=== PATIENT | female | born 1955 | race Caucasian/White ===

== ENCOUNTER 2016-07-15 17:25 | Inpatient (IN) | payer OTHER ==
[2016-07-15] MEDS ORDERED: NITROGLYCERIN SL PRN (17:39)
[2016-07-15] MEDS ORDERED: ASPIRIN PO STA (17:39)
--- NOTE | 2016-07-15 18:32 | Diag Imaging Result Document ---
PROCEDURE NAME: CHEST-2 VIEWS - 07/15/2016 FRONTAL AND LATERAL CHEST, TWO VIEWS: COMPARISON: 07/05/2014. FINDINGS: The lungs are hyperexpanded. There is a dense infiltrate in the midright lung. The heart is not enlarged. Mild vascular distention. No pleural effusions. IMPRESSION: 1. Emphysema. 2. Right pneumonia.
[2016-07-15] MEDS ORDERED: MORPHINE IV ONE (19:23)
[2016-07-15] MEDS ORDERED: LEVAQUIN 750 MG/D5W 150 ML IV ONE (19:24)
[2016-07-15] MEDS ORDERED: ZOFRAN IV ONE (19:24)
--- NOTE | 2016-07-15 19:30 | PROVIDER DOCUMENTATION ---
HPI-Respiratory General - General Chief Complaint: Shortness of Breath Stated Complaint: CHEST PAIN,COPD,CANT BREATHE Time Seen by Provider: 07/15/16 19:15 Source: patient, family Allergies/Adverse Reactions: Patient Allergies Allergy/AdvReac Type Severity Reaction Status Date / Time No Known Allergies Allergy Verified 07/15/16 20:16 Home Medications: Home Medication List Medication Instructions Recorded Confirmed Last Taken Type Albuterol Sulfate [Proair Hfa] 1 puff IH Q4HR 05/04/13 08/02/14 08/01/14 History Mometasone/Formoterol [Dulera 200 1 puff IH BID 05/04/13 08/02/14 08/01/14 History Mcg/5 Mcg Inhaler] Tiotropium [place] Inhaler 1 puff INH RTDAILY 05/04/13 08/02/14 08/01/14 History [Spiriva] Trazodone [Desyrel] 50 mg PO QHS 05/04/13 08/02/14 08/01/14 History - History of Present Illness-Resp Nature of Presenting Problem: 61 year old WF with PMH: COPD, home oxygen, presents with a 2 day history of cough, worsening shortness of breath, worsening difficulty breathing, subjective fever/chills, and nausea. Pt reports associated weakness, fatigue and decreased appetite. Quality of Pain: reports: aching (right back, right mid chest), dull Severity in ED: reports: mild Onset/Duration: reports: 2 days ago Timing: reports: still present, constant, getting worse Context: reports: recent URI Exposure: reports: unknown cause Cough Quality/Degree: reports: moderate, productive cough, sputum Episode Frequency: occasional episodes Current Respiratory Medication Therapy: Initiated steroid inhaler, Initiated albuterol, Initiated singulair Modifying Factors: improves with: oxygen, rest Associated Symptoms: reports: chest pain/soreness, cough, fever/chills, hurts to breathe, shortness of breath, short of breath Similar Symptoms Previously?: Yes Recently seen or treated by another doctor?: No Review of Systems - Adult - REVIEW OF SYSTEMS - ADULT Constitutional: reports: see HPI, chills, fever, fatique Eyes: reports: no symptoms reported. denies: discharge, blurred vision, double vision, redness Ears, Nose, Mouth & Throat: reports: no symptoms reported. denies: ear discharge, ear pain, nose pain, loose teeth, throat pain, throat swelling Cardiovascular: reports: see HPI, chest pain. denies: edema, heart murmur, irregular heart rate, orthopnea, palpitations, poor circulation, syncope Respiratory: reports: see HPI, chronic cough, cough, dyspnea on exertion, shortness of breath, wheezing. denies: excessive sputum production, hemoptysis , pleurisy Gastrointestinal: reports: see HPI, nausea. denies: abdominal pain, diarrhea, vomiting Genitourinary: reports: no symptoms reported. denies: dysuria, hematuria, urgency Musculoskeletal: reports: no symptoms reported. denies: bone pain, joint pain, joint swelling, muscle weakness, neck pain Integumentary: reports: no symptoms reported. denies: hives, itching, rash, skin sores/ulcer Neurological: reports: no symptoms reported. denies: ataxia, numbness, paresthesia, tremors Psychiatric: reports: no symptoms reported Endocrine: reports: no symptoms reported Hematologic/Lymphatic: reports: no symptoms reported Allergic/Immunologic: reports: no symptoms reported All Other Systems: Reviewed and Negative Past History - Adult - PAST MEDICAL HISTORY-ADULT Review of Records: reports: Old Records Reviewed, Nursing Assessment Review, Medications Reviewed, Social history reviewed & non-contributory. Major Childhood Illnesses: reports: denies history Cardiovascular: reports: denies history Respiratory: reports: COPD, pneumonia, sleep apnea, other (pneumothorax) Gastrointestinal: reports: denies history Obstetrical/Gynecological: reports: denies history Genitourinary: reports: denies history Musculoskeletal: reports: denies history Neurological: reports: denies history Endocrine/Immune: reports: denies history Other Conditions: reports: denies history - PRIOR SURGERIES/PROCEDURES Surgical/Procedure History: reports: hysterectomy, other (ear) - FAMILY HISTORY Family History: reviewed, not pertinent - SOCIAL HISTORY Smoking: cigarettes Provider spent 3-5 mins advising pt. on dangers of tobacco.: Discussed manners to quit use, and f/u contacts for add'l counseling. Substance Use: none/never Alcohol Use Frequency: never Physical Exam-General - PHYSICAL EXAM-ADULT Initial Vital Signs Reviewed: Yes - CONSTITUTIONAL General Appearance: appears well, alert, mild distress. negative: no apparent distress, moderate distress, severe distress, lethargic, slow to respond, obtunded, combative - EYES Eyes: pink conjunctivae. negative: conjuctival exudate, pale conjunctivae, photophobia, sclera injected, scleral icterus, subconjunctival hemorrhage - HEAD, EARS, NOSE, MOUTH & THROAT HENMT: normocephalic/atraumatic, moist mucous membranes, normal ENT inspection - NECK Neck: non-tender, full range of motion, supple, normal inspection. negative: C- spine tenderness, limited range of motion, tender lateral, tender midline - RESPIRATORY Respiratory: chest non-tender, no pleuratic chest pain, no respiratory distress , no accessory muscle use, respiratory distress (with exertion), decreased breath sounds, rhonchi (right lobe), wheezing. negative: lungs clear, normal breath sounds, accessory muscle use, crackles, rales, stridor - CARDIOVASCULAR Cardiovascular: normal peripheral pulses, regular rate, rhythm, no edema, no gallop, no JVD - CHEST (BREASTS) Chest/Breast: tenderness (with deep inspiration) - GASTROINTESTINAL (ABDOMEN) Abdominal Exam: normal bowel sounds, non tender, soft - GENITOURINARY Female Genitalia/Pelvic Exam: deferred Rectal Exam: deferred Hemoccult Exam: deferred - LYMPHATIC Lymphatic: no adenopathy - MUSCULOSKELETAL Back Exam: normal inspection, no CVA tenderness, no vertebral tenderness. negative: CVA tenderness, decreased range of motion, swelling, vertebral tenderness Extremity: normal range of motion, non-tender, normal gait, normal inspection, no pedal edema, no calf tenderness, normal capillary refill. negative: deformity, erythema, pedal edema, slow capillary refill, swelling, tenderness Peripheral Pulses: radial (R): 3+, radial (L): 3+, dorsalis-pedis (R): 3+, dorsalis-pedis (L): 3+ - SKIN Integumentary: normal color, normal turgor, warm/dry - NEUROLOGIC Neurologic: grossly normal, no motor/sensory deficits - PSYCHIATRIC Psych/Mental Status: normal mood/affect, normal thought content, normal thought process, oriented x 3 Progress - PLAN OF CARE/RESULTS Progress/Plan/Lab Results: Laboratory Tests 07/15/16 07/15/16 07/15/16 19:02 19:02 19:02 WBC 23.05 H RBC 4.00 L Hgb 9.9 L Hct 32.2 L MCV 80.5 L MCH 24.8 L MCHC 30.7 L RDW Std Deviation 15.9 H Plt Count 574 H MPV 9.2 Immature Gran % (Auto) 0.3 Neut % (Auto) 86.2 H Lymph % (Auto) 5.8 L [place] % (Auto) 6.2 Eos % (Auto) 1.3 Baso % (Auto) 0.2 Immature Gran # (Auto) 0.08 H Neut # (Auto) 19.88 H Lymph # (Auto) 1.33 Sau[place] # (Auto) 1.42 H Eos # (Auto) 0.30 Baso # (Auto) 0.04 Monocytes 2 Hypochromia 2+ Vacuolization OCCASIONAL Toxic Granulation OCCASIONAL Large Platelets OCCASIONAL Poikilocytosis OCCASIONAL Anisocytosis 1+ Microcytosis OCCASIONAL Target Cells 1+ Ovalocytes OCCASIONAL Stomatocytes OCCASIONAL Schistocytes OCCASIONAL PT INR PTT (Actin FS) D-Dimer 0.76 H Sodium 136 Potassium 4.2 Chloride 95 L Carbon Dioxide 25 Anion Gap 16 BUN 8 Creatinine 0.7 Estimated GFR/1.73 m2 > 60 BUN/Creatinine Ratio 11 Glucose 119 H Calculated Osmolality 271 Calcium 8.3 L Magnesium 1.9 Total Bilirubin 0.42 AST 12 ALT 12 Alkaline Phosphatase 103 Creatine Kinase 118 Troponin T Kac-E-Tdoknuttndg Pept Total Protein 7.3 Albumin 3.7 Globulin 3.6 Albumin/Globulin Ratio 1.0 Plasma Lactate 07/15/16 07/15/16 07/15/16 19:02 19:02 19:02 WBC RBC Hgb Hct MCV MCH MCHC RDW Std Deviation Plt Count MPV Immature Gran % (Auto) Neut % (Auto) Lymph % (Auto) Sau[place] % (Auto) Eos % (Auto) Baso % (Auto) Immature Gran # (Auto) Neut # (Auto) Lymph # (Auto) [place] # (Auto) Eos # (Auto) Baso # (Auto) Monocytes Hypochromia Vacuolization Toxic Granulation Large Platelets Poikilocytosis Anisocytosis Microcytosis Target Cells Ovalocytes Stomatocytes Schistocytes PT 11.4 INR 1.07 PTT (Actin FS) 35.0 D-Dimer Sodium Potassium Chloride Carbon Dioxide Anion Gap BUN Creatinine Estimated GFR/1.73 m2 BUN/Creatinine Ratio Glucose Calculated Osmolality Calcium Magnesium Total Bilirubin AST ALT Alkaline Phosphatase Creatine Kinase Troponin T < 0.010 Hbz-T-Hhfjttxhxse Pept 134 Total Protein Albumin Globulin Albumin/Globulin Ratio Plasma Lactate 07/15/16 19:02 WBC RBC Hgb Hct MCV MCH MCHC RDW Std Deviation Plt Count MPV Immature Gran % (Auto) Neut % (Auto) Lymph % (Auto) Sau[place] % (Auto) Eos % (Auto) Baso % (Auto) Immature Gran # (Auto) Neut # (Auto) Lymph # (Auto) [place] # (Auto) Eos # (Auto) Baso # (Auto) Monocytes Hypochromia Vacuolization Toxic Granulation Large Platelets Poikilocytosis Anisocytosis Microcytosis Target Cells Ovalocytes Stomatocytes Schistocytes PT INR PTT (Actin FS) D-Dimer Sodium Potassium Chloride Carbon Dioxide Anion Gap BUN Creatinine Estimated GFR/1.73 m2 BUN/Creatinine Ratio Glucose Calculated Osmolality Calcium Magnesium Total Bilirubin AST ALT Alkaline Phosphatase Creatine Kinase Troponin T Pmu-I-Qdvpjgmzsal Pept Total Protein Albumin Globulin Albumin/Globulin Ratio Plasma Lactate 1.2 Orders Category Date Time Status Cardiac Monitoring DIRECTED Care 07/15/16 17:40 Active Saline Loc NOW Care 07/15/16 17:40 Active CHEST-2 VIEWS [RAD] Stat Exams 07/15/16 17:40 Draft CTA [ANGIOGRAM/PULMONARY ARTERIES] [CT] Stat Exams 07/15/16 20:21 Taken BLOOD CULTURE [BLDCUL] Stat Lab 07/15/16 19:02 Results CBC WITH ELECTRONIC DIFF [HEME] Stat Lab 07/15/16 19:02 Results CK PROFILE [SP CHEM] Stat Lab 07/15/16 19:02 Completed COMPREHENSIVE METABOLIC PANEL [CHEM] Stat Lab 07/15/16 19:02 Completed D-DIMER [CHEM] Stat Lab 07/15/16 19:02 Completed LACTATE, PLASMA [CHEM] Stat Lab 07/15/16 19:02 Completed MAGNESIUM [CHEM] Stat Lab 07/15/16 19:02 Completed PRO B-NATRIURETIC PEPTIDE Stat Lab 07/15/16 19:02 Completed PROTIME WITH INR [COAG] Stat Lab 07/15/16 19:02 Completed PTT [COAG] Stat Lab 07/15/16 19:02 Completed SPUTUM CULTURE WITH GRAM STAIN [RM] Stat Lab 07/15/16 19:30 Uncollected TROPONIN T Stat Lab 07/15/16 19:02 Completed 0.9% Sodium Chloride Inj [Ns] 500 ml Med 07/15/16 19:36 Discontinued IV 999 mls/hr Aspirin Med 07/15/16 17:39 Discontinued 325 mg PO STAT STA Levofloxacin 750 mg/D5w [Levaquin 750 mg/D5w] 150 ml Med 07/15/16 19:24 Discontinued IV NOW Morphine Med 07/15/16 19:23 Discontinued 4 mg IV NOW ONE Nitroglycerin Sl [Nitroglycerin] Med 07/15/16 17:39 Active 0.4 mg SL Q5M PRN PRN Ondansetron [Zofran] Med 07/15/16 19:24 Discontinued 4 mg IV NOW ONE EKG [EKG] Stat Ther 07/15/16 17:40 Ordered Vital Signs - 24 hr 07/15/16 07/15/16 07/15/16 17:38 20:15 21:24 Temperature 99.9 F H Pulse Rate 119 H 106 H 91 H Respiratory 22 18 19 Rate Blood Pressure 119/77 143/123 105/63 O2 Sat by Pulse 91 L 94 L 95 Oximetry Reviewed radiology, labs, H&P with Dr. Warner, agrees with plan of care and treatment. - XRAY 1 XRAY Study: Chest Impression: Abnormal (right pneumonia, emphysema per Dr. Shah) - CT/MRI 1 CT Study: Angiogram, Thorax (pulmonary arteries) Impression: Normal, Abnormal (CT confirms right pneumonia, no PE, no effusiona, no cardiomegaly, 14mm right apical nodule vs pleural thickening, thickening of the left as well, emphysema, enlarged nodes. per Dr. Shah) - CONSULTS/PCP/HOSPITALIST Notification #1 *Consult/PCP/Hospitalist*: Dr. Ma Time Discussed: 21:31 Consult Disposition: Will see in ED, Admit Departure - Departure Time of Disposition Order: 21:32 DIAGNOSIS: PNA (pneumonia) Qualifiers: Pneumonia type: due to unspecified organism Laterality: right Lung location: middle lobe of lung Qualified Code(s): J18.1 - Lobar pneumonia, unspecified organism COPD (chronic obstructive pulmonary disease) Qualifiers: COPD type: unspecified COPD Qualified Code(s): J44.9 - Chronic obstructive pulmonary disease, unspecified Disposition: ADMITTED INPATIENT 09 Certified Medical Emergency: Emergent Condition: Stable Referrals: [Primary Care Provider] - Attestation - Physician/ JAVI Attestation Patient care was provided by Advanced Practice Provider:: Yes Advanced Practice Provider:: [place] Advanced Practice Provider documentation review:: The Mid-level provider documentation, treatment plan and medical decision making was reviewed by the physician who agrees with all treatment and medical decision making by the MLP.
[2016-07-15 19:31] LABS: BASO% 0.2 % (0.0-0.8); EOS% 1.3 % (0.0-10.0); HEMATOCRIT 32.2 % (37.0-47.0); HEMOGLOBIN 9.9 g/dL (12.0-16.0); IMM GRAN# 0.08 X1000 (0.0-0.04); IMM GRAN% 0.3 % (0.0-0.5); LYMPH# 1.33 X1000 (1.2-3.4); LYMPH% 5.8 % (20.5-51.1); MANUAL DIFF NEEDED? YES; MCH 24.8 PG (27-31); MCHC 30.7 g/dL (33-37); MCV 80.5 FL (81-99); MONO# 1.42 X1000 (0.11-0.59); MONO% 6.2 % (1.7-9.3); MPV 9.2 FL (7.4-10.4); NEUT% 86.2 % (42.2-75.2); PLT 574 X1000 (130-400)
[2016-07-15] MEDS ORDERED: NS 500 ML IV ONE (19:36)
[2016-07-15 19:42] LABS: AGAP 16; ALBUMIN 3.7 g/dL (3.5-5.0); ALKALINE PHOSPHATASE 103 U/L (32-104); BUN 8 mg/dL (8-22); CALCIUM 8.3 mg/dL (8.8-10.2); CHLORIDE 95 mmol/L (98-107); CK PROFILE 118 U/L (24-173); COSMO 271; GOT 12 U/L (10-30); GPT 12 U/L (10-36); MAGNESIUM 1.9 mg/dL (1.5-2.7); POTASSIUM 4.2 mmol/L (3.5-5.1); SODIUM 136 mmol/L (136-145); TCO2 25 mmol/L (25-35); TOTAL BILIRUBIN 0.42 mg/dL (0.20-1.00); TOTAL PROTEIN 7.3 g/dL (6.3-8.3)
[2016-07-15 19:47] LABS: INR 1.07; PROTIME 11.4 Seconds (9.2-11.7)
[2016-07-15 21:16] LABS: MONO 2 % (1-9)
[2016-07-15 21:19] LABS: HYPOCHROM 2+
[2016-07-15 21:20] LABS: TARGET CELLS 1+
[2016-07-15 21:21] LABS: LARGE PLATELETS OCCASIONAL; STOMATOCYTES OCCASIONAL
[2016-07-15 21:30] LABS: BANDS 2 % (0-1); LYMPHS 6 % (21-51)
[2016-07-15] MEDS ORDERED: MORPHINE IV PRN (22:27)
[2016-07-15] MEDS ORDERED: LASIX IV ONE ×2 (22:32)
--- NOTE | 2016-07-15 23:06 | HISTORY AND PHYSICAL ---
REASON FOR ADMISSION: 2-day history of shortness of breath, cough, fever, chills. HISTORY OF PRESENT ILLNESS: Ms. Karen Ibrahim is a 64-year-old lady with past medical history of COPD, sleep apnea and hyperlipidemia. She comes in complaining of 2-day history of right pleuritic chest pain, cough productive of greenish sputum and low-grade fever. She has also stated over the last 24 hours, she has been having worsening shortness of breath with orthopnea. Denies any anginal type symptoms. However, no palpitations or lightheadedness. No PND, no leg swelling. No extremity redness or pain. No GI or complaints. The patient is a poor historian because she just received IV morphine and is not very coherent of her history, but will follow commands. Her is at bedside and he is filling in for most of the gaps patient is unable to answer. REVIEW OF SYSTEMS: Twelve system review is negative. Positive per HPI. ALLERGIES: None. MEDICATIONS: Patient says she has not been getting her medications but she used to be on Spiriva, Symbicort, trazodone and albuterol. FAMILY HISTORY: Positive for breast cancer, diabetes in first-degree relatives. SOCIAL HISTORY: Smokes 2 packs a day. Has no immediate plans to quit. The patient has about 3 beers a day. No illicit drug use. She is , lives with her . SURGICAL HISTORY: Appendectomy, chest tube placement, , right ear surgery. PERTINENT DATA: CTA of the chest was done for elevated D-dimer and shortness of breath and it showed right lower lobe pneumonia. Her white count 20,000, hemoglobin and hematocrit 9 and 32. MCV is 80, platelets 574,000 with a left shift. Glucose 119. Troponins negative. ProBNP 134, D- dimer 0.76. PTT is normal. Blood cultures are pending. Chest x-ray confirms the same right lower lobe pneumonia. PHYSICAL EXAMINATION: VITAL SIGNS: Blood pressure 105/63, heart rate 91, respirations 19, temperature is 99.9. GENERAL: Middle-aged woman, who is alert, but slightly drowsy, oriented to person, place, and time. HEENT: Head is normocephalic, atraumatic. Eyes, MARIAELENA, EOMI. She is anicteric and not pale. ENT and oropharynx exam is grossly normal. NECK: Supple. Slight JVD. Positive hepatojugular reflux is noted. No bruit or thyromegaly. LYMPH NODE: Exam is negative. CHEST: Bibasilar crepitations heard. No wheezes. CARDIOVASCULAR: 1st and 2nd heart sounds heard. No gallops, murmurs or rubs. Rhythm is regular. ABDOMEN: Full, soft, with mild right upper quadrant tenderness. No rebound or guarding. No mass or organomegaly. Bowel sounds are diminished. Rectal sounds heard. EXTREMITIES: No edema clubbing, cyanosis. No areas of erythema in her lower extremities. No tenderness elicited. Pulses distally intact. NEUROLOGICAL: No focal deficits. SKIN: Intact. No breakdown lesions or erythema. MUSCULAR: Exam is grossly normal. ASSESSMENT: 1. Right middle/lower lobe pneumonia. 2. Chronic obstructive pulmonary disease. 3. Sleep apnea. 4. Tobacco use. PLAN: At this time, the patient will be started on empiric antibiotic therapy i.e. Zithromax and Rocephin. Scheduled pain control to avoid as splinting of her right chest wall will be instituted. Nebulizer treatments will also be administered. The patient clinically appears to be in early pulmonary edema and I will give her a low dose of Lasix to counteract this. We will give the patient short dose of steroids which may be beneficial in decreasing her stay in the hospital. Deep venous thrombosis prophylaxis with Lovenox and if possible, avoid orally inhaled steroids as this can increase the patient's risk of having recurrent pneumonia if possible.
[2016-07-16] MEDS: DUONEB (A & A) INH SCH ×7 (00:05→23:20)
[2016-07-16] MEDS: LOVENOX SUBQ SCH ×2 (00:35→23:32)
[2016-07-16] MEDS: ROCEPHIN 1 GM/NS 50 ML IV SCH (00:36)
[2016-07-16] MEDS: ZITHROMAX 500 MG/NS 250 ML IV SCH (01:07)
--- NOTE | 2016-07-16 05:46 | EKG Report ---
Test Performed on : 07/15/2016 5:47:01 PM Test Reason : Chest Pain Blood Pressure : / mmHG Vent. Rate : 119 BPM Atrial Rate : 119 BPM P-R Int : 140 ms QRS Dur : 080 ms QT Int : 316 ms P-R-T Axes : 067 065 058 degrees QTc Int : 444 ms Sinus tachycardia. Possible Left atrial enlargement Borderline ECG No previous ECGs available Unconfirmed Result
[2016-07-16 07:19] LABS: BASO% 0.2 % (0.0-0.8); EOS# 0.27 X1000 (0.0-0.7); EOS% 1.5 % (0.0-10.0); HEMATOCRIT 30.3 % (37.0-47.0); HEMOGLOBIN 9.2 g/dL (12.0-16.0); IMM GRAN# 0.04 X1000 (0.0-0.04); IMM GRAN% 0.2 % (0.0-0.5); LYMPH# 1.07 X1000 (1.2-3.4); MANUAL DIFF NEEDED? YES; MCH 24.5 PG (27-31); MCHC 30.4 g/dL (33-37); MCV 80.8 FL (81-99); MONO# 1.52 X1000 (0.11-0.59); MONO% 8.5 % (1.7-9.3); MPV 9.4 FL (7.4-10.4); NEUT% 83.6 % (42.2-75.2); PLT 519 X1000 (130-400); RBC 3.75 XMIL (4.2-5.4)
[2016-07-16 07:25] LABS: AGAP 12; ALBUMIN 3.1 g/dL (3.5-5.0); ALKALINE PHOSPHATASE 93 U/L (32-104); BUN 8 mg/dL (8-22); CALCIUM 8.2 mg/dL (8.8-10.2); CHLORIDE 95 mmol/L (98-107); COSMO 266; GOT 12 U/L (10-30); GPT 10 U/L (10-36); POTASSIUM 4.2 mmol/L (3.5-5.1); SODIUM 133 mmol/L (136-145); TCO2 26 mmol/L (25-35); TOTAL BILIRUBIN 0.21 mg/dL (0.20-1.00); TOTAL PROTEIN 6.9 g/dL (6.3-8.3)
[2016-07-16 08:08] LABS: HYPOCHROM 2+; LYMPHS 6 % (21-51); MONO 4 % (1-9)
--- NOTE | 2016-07-16 09:43 | Diag Imaging Result Document ---
PROCEDURE NAME: ANGIOGRAM/PULMONARY ARTERIES - 07/15/2016 COMPARISON: None available. FINDINGS: There is no evidence of pulmonary embolism. There is no evidence of aortic dissection or aneurysm. The heart does not appear to be enlarged. There are several calcified left hilar lymph nodes indicating prior granulomatous disease. There are other prominent noncalcified mediastinal lymph nodes and right hilar lymph nodes that are nonspecific and are probably reactive given the parenchymal lung findings discussed below. For reference, the most prominent kristine conglomerate is in the subcarinal region and measures approximately 3.2 x 1.5 cm axially. There is extensive pulmonary emphysema with an apical predominance. There is dense airspace consolidation in the anterior segment of the right upper lobe consistent with pneumonia. There is biapical pleural and parenchymal scarring. At the right lung apex there is a somewhat nodular spiculated density that is contiguous with the scarring this is probably simply a nodular projection of the scarring. However, based on Apple Society criteria, an initial followup CT is recommended in 3 months to exclude neoplasm based on the size of this lesion. The lesion measures 1.7 x 1.3 cm axially. There is a second much smaller nodule measuring approximately 6.6 mm that has a vaguely spiculated border that is also in the right upper lobe on image 41 of series 6. It measures approximately 6.6 mm in the greatest dimension. It may represent an inflammatory focus. Again, CT followup is recommended to assure stability or resolution. Just inferior to this nodule, there is a third focal opacity that is also subcentimeter in size and has a more inflammatory appearance. There is a 5 mm nonspecific noncalcified nodule in the right lower lobe on image 107 of series 6. In the left lower lobe there appears to be very mild patchy infiltrate near the base suggesting pneumonitis. This is much milder than the right upper lobe pneumonia. There appears to be bronchial mucosal thickening at both lower lung zones suggesting nonspecific bronchitis. Limited views of the upper abdomen reveals unenhancing focus in the right hepatic lobe that is stable as compared to a prior CT of the abdomen dated 07/05/2014 and probably represents a small hemangioma. IMPRESSION: 1. Pulmonary emphysema. 2. Dense consolidation in the anterior segment of the right upper lobe consistent with pneumonia and likely much milder pneumonitis at the left lower lobe. 3. Biapical scarring with a somewhat nodular component at the right lung apex as described as well as a couple other nonspecific noncalcified nodules in the right lung that are subcentimeter in size. Followup is recommended based on Apple Society criteria with a repeat CT in 3 months. 4. Nonspecific mediastinal lymphadenopathy, probably, at least in part, reactive. 5. Bilateral bronchial mucosal thickening suggesting bronchitis. 6. No evidence of pulmonary embolism. [facility]
[2016-07-16 10:15] LABS: IRON SATURATION 5 %; TIBC 354 ug/dL; TOTAL IRON 17 ug/dL (49-151); UNBOUND IRON 337 ug/dL (112-346)
[2016-07-16] MEDS: MOTRIN PO SCH ×3 (11:18→18:10)
[2016-07-16] MEDS: PREDNISONE PO SCH (11:18)
[2016-07-16] MEDS: TYLENOL PO SCH ×3 (11:18→18:10)
[2016-07-16] MEDS ORDERED: NICODERM PATCH TD PRN (14:31)
--- NOTE | 2016-07-16 16:37 | PROGRESS NOTE ---
DATE: 07/16/2016 SUBJECTIVE: This patient is still complaining about coughing and chest pain, mostly related with the cough. She denies nausea, vomiting, diarrhea. She is still complaining of mild chills. OBJECTIVE: Vital Signs: Temperature 98.3 degrees, pulse 84, respiratory rate 16, blood pressure 102/65, oxygen saturation 96 on 3 L of nasal cannula. HEENT: Head normocephalic. No trauma. PERRLA. Neck: Supple. No JVD. No masses. Central trachea. Chest: Decreased breath sounds globally. Prolonged expiatory phase. Right upper lung rhonchi. Mild rales at the bases bilaterally. No wheezing. Cardiovascular: RRR. No murmurs. Abdomen: Soft, nontender, nondistended. No hepatosplenomegaly. Extremities: No edema. No clubbing. No cyanosis. Neurological: The patient is alert and oriented x3. No focal neurological deficits. LABORATORY: WBC 17.8, hemoglobin 9.2, hematocrit 30.3, platelets 517,000. Sodium 133, potassium 4.2, chloride 95, bicarbonate 26, BUN 8, creatinine 0.6, glucose 115, calcium 8.2. ASSESSMENT AND PLAN: 1. Right upper lobe pneumonia. This patient is feeling a little bit better. She is still complaining about coughing and phlegm. I will continue with azithromycin and Rocephin IV and also breathing treatment and oxygen. 2. Chronic obstructive pulmonary disease. She is not having wheezing at this moment but we will continue with breathing treatment and oxygen, also nebulizers. She is still smoking and we have been talking to her about quitting smoking. 3. Microcytic anemia. Ferritin level is low and TIBC is high. I will put this patient on ferrous sulfate. 4. Sleep apnea. Continue to monitor. 5. Tobacco use. This patient will be on nicotine patch. She has been highly advised against smoking cigarettes. I will continue with daily education.
[2016-07-16] MEDS: DESYREL PO SCH (21:50)
[2016-07-17] MEDS: ROCEPHIN 1 GM/NS 50 ML IV SCH (01:26)
[2016-07-17] MEDS: ZITHROMAX 500 MG/NS 250 ML IV SCH (02:10)
[2016-07-17] MEDS: DUONEB (A & A) INH SCH ×6 (03:22→23:19)
[2016-07-17 06:38] LABS: BASO% 0.1 % (0.0-0.8); EOS# 0.05 X1000 (0.0-0.7); EOS% 0.4 % (0.0-10.0); HEMATOCRIT 27.9 % (37.0-47.0); HEMOGLOBIN 8.5 g/dL (12.0-16.0); IMM GRAN# 0.03 X1000 (0.0-0.04); IMM GRAN% 0.2 % (0.0-0.5); LYMPH# 0.99 X1000 (1.2-3.4); MANUAL DIFF NEEDED? YES; MCH 24.6 PG (27-31); MCHC 30.5 g/dL (33-37); MCV 80.6 FL (81-99); MONO# 0.89 X1000 (0.11-0.59); MONO% 6.3 % (1.7-9.3); MPV 9.5 FL (7.4-10.4); PLT 515 X1000 (130-400); RBC 3.46 XMIL (4.2-5.4)
[2016-07-17 06:49] LABS: LYMPHS 8 % (21-51); MONO 6 % (1-9)
[2016-07-17 07:01] LABS: AGAP 12; BUN 11 mg/dL (8-22); CALCIUM 8.3 mg/dL (8.8-10.2); CHLORIDE 98 mmol/L (98-107); COSMO 277; POTASSIUM 3.7 mmol/L (3.5-5.1); SODIUM 139 mmol/L (136-145); TCO2 29 mmol/L (25-35)
[2016-07-17] MEDS: PREDNISONE PO SCH (10:31)
[2016-07-17] MEDS: FERROUS SULFATE PO SCH (10:31)
[2016-07-17] MEDS: TYLENOL PO SCH ×3 (10:31→17:04)
[2016-07-17] MEDS: FOLIC ACID PO SCH (10:31)
[2016-07-17] MEDS: MOTRIN PO SCH ×3 (10:32→17:03)
--- NOTE | 2016-07-17 16:39 | PROGRESS NOTE ---
DATE: 07/17/2016 SUBJECTIVE: This patient states that she is feeling better but she is still complaining about coughing and chest pain, mostly related with the cough. She denies nausea, vomiting, diarrhea. She is still complaining of mild chills as well. OBJECTIVE: Vital Signs: Temperature 98 degrees, pulse 97, respiratory rate 18, blood pressure 110/50, oxygen saturation 85% on 2 L of nasal cannula. HEENT: Head normocephalic. No trauma. PERRLA. Neck: Supple. No JVD. No masses. Central trachea. Chest: Decreased breath sounds globally. Prolonged expiratory phase. Right upper lung rhonchi. Mild rales at the bases bilaterally. No wheezing. Cardiovascular: RRR. No murmurs. Abdomen: Soft, nontender, nondistended. No hepatosplenomegaly. Extremities: No edema. No clubbing. No cyanosis. Neurological: The patient is alert and oriented x3. No focal neurological deficits. LABORATORY: WBC 14.1, hemoglobin 8.5, hematocrit 27.9, platelets 515,000. Sodium 139, potassium 3.7, chloride 98, bicarbonate 29, BUN 11, creatinine 0.6, glucose 105, calcium 8.3, folate 6.4, vitamin B12 306. ASSESSMENT AND PLAN: 1. Right upper lobe pneumonia. This patient is feeling a little bit better. She is still complaining of cough and coughing up phlegm. I will continue with azithromycin and Rocephin IV and also breathing treatments and oxygen. 2. Chronic obstructive pulmonary disease exacerbation. She is not having wheezing at this moment but I will continue with breathing treatment and oxygen, also nebulizers. She is still smoking and we have been talking to her about quitting smoking. 3. Microcytic anemia. Ferritin level is low and TIBC is high. I will put this patient on ferrous sulfate. 4. Folate deficiency. I will add today folic acid to her medications as well. 5. History of sleep apnea. Continue to monitor. 6. Tobacco use. This patient is on a nicotine patch. She has been highly advised against smoking cigarettes I will continue with daily cessation education.
[2016-07-17] MEDS: DESYREL PO SCH (21:35)
[2016-07-18] MEDS: LOVENOX SUBQ SCH (00:31)
[2016-07-18] MEDS: ROCEPHIN 1 GM/NS 50 ML IV SCH (00:31)
[2016-07-18] MEDS: ZITHROMAX 500 MG/NS 250 ML IV SCH (01:00)
[2016-07-18] MEDS: DUONEB (A & A) INH SCH ×6 (03:43→23:47)
[2016-07-18 07:11] LABS: MANUAL DIFF NEEDED? NO
[2016-07-18 07:21] LABS: BASO% 0.3 % (0.0-0.8); EOS# 0.11 X1000 (0.0-0.7); EOS% 0.9 % (0.0-10.0); HEMATOCRIT 27.9 % (37.0-47.0); HEMOGLOBIN 8.4 g/dL (12.0-16.0); IMM GRAN# 0.03 X1000 (0.0-0.04); IMM GRAN% 0.3 % (0.0-0.5); LYMPH# 1.37 X1000 (1.2-3.4); LYMPH% 11.6 % (20.5-51.1); MCH 24.4 PG (27-31); MCHC 30.1 g/dL (33-37); MCV 81.1 FL (81-99); MONO# 0.82 X1000 (0.11-0.59); MONO% 6.9 % (1.7-9.3); MPV 9.2 FL (7.4-10.4); PLT 596 X1000 (130-400); RBC 3.44 XMIL (4.2-5.4)
[2016-07-18 07:43] LABS: AGAP 13; ALBUMIN 3.1 g/dL (3.5-5.0); ALKALINE PHOSPHATASE 76 U/L (32-104); BUN 9 mg/dL (8-22); CALCIUM 8.3 mg/dL (8.8-10.2); CHLORIDE 100 mmol/L (98-107); COSMO 278; GOT 16 U/L (10-30); GPT 15 U/L (10-36); POTASSIUM 4.1 mmol/L (3.5-5.1); SODIUM 140 mmol/L (136-145); TCO2 27 mmol/L (25-35); TOTAL BILIRUBIN 0.12 mg/dL (0.20-1.00); TOTAL PROTEIN 6.4 g/dL (6.3-8.3)
--- NOTE | 2016-07-18 09:02 | Diag Imaging Result Document ---
PROCEDURE NAME: CHEST-2 VIEWS - 07/18/2016 TWO VIEWS OF THE CHEST: FINDINGS: There are ill-defined opacities in the mid and lower right lung field, which has not changed significantly since 07/15/2016. This appears to be largely in the right upper lobe anteriorly. On the lateral, there may be some slight improvement, with regard to this region. Abnormalities were not present on the previous study of 07/05/2014. IMPRESSION: Right upper lobe and possible lower lobe pneumonia.
[2016-07-18] MEDS: MOTRIN PO SCH ×3 (09:56→16:11)
[2016-07-18] MEDS: PREDNISONE PO SCH (09:56)
[2016-07-18] MEDS: FOLIC ACID PO SCH (09:56)
[2016-07-18] MEDS: TYLENOL PO SCH ×3 (09:56→16:11)
[2016-07-18] MEDS: FERROUS SULFATE PO SCH (09:56)
--- NOTE | 2016-07-18 14:23 | PROGRESS NOTE ---
DATE: 07/18/2016 SUBJECTIVE: This patient states that she is feeling better but she is still coughing and having chest pain. The chest pain is related with the cough. She denies nausea, vomiting, diarrhea, constipation. I will ask for a physical therapy evaluation. OBJECTIVE: Vital Signs: Temperature 98.3 degrees, pulse 108, respiratory rate 24, blood pressure 114/63, oxygen saturation 92 on 3 L of nasal cannula. HEENT: Head normocephalic. No trauma. PERRLA. Neck: Supple. No JVD. No masses. Central trachea. Chest: Decreased breath sounds globally. Prolonged expiratory phase. Right upper lung rhonchi. Mild rales at the bases bilaterally. Scattered wheezing. Cardiovascular: RRR. No murmurs. Abdomen: Soft, nontender, nondistended. No hepatosplenomegaly. Extremities: No edema. No clubbing. No cyanosis. Neurological: The patient is alert and oriented x3. No focal neurological deficits. LABORATORY: WBC 11.8, hemoglobin 8.4, hematocrit 27.9, platelets 596,000. Sodium 140, potassium 4.1, chloride 100, bicarbonate 27, BUN 9, creatinine 0.5, glucose 97, calcium 8.3, albumin 3.1. ASSESSMENT AND PLAN: 1. Right upper lobe pneumonia. She is feeling a little bit better. The leukocyte count is getting better as well. She came in with a white blood cell count of 23,000 and today it is 11.8. I will continue with oxygen. We will continue with azithromycin and Rocephin, breathing treatment, and aggressive pulmonary toilet. I will put this patient today on physical therapy. 2. Chronic obstructive pulmonary disease exacerbation. She is having scattered wheezing at this moment. She will continue having the breathing treatment and oxygen, nebulizers, and this patient is on prednisone as well. 3. Microcytic anemia. Ferritin level is low and TIBC is high. This patient has been placed on ferrous sulfate. 4. Folate deficiency. This patient has been placed on folic acid. 5. History of sleep apnea. Continue to monitor. She uses oxygen at home, mostly to sleep and also when she has physical activity. 6. Tobacco use. This patient is a nicotine patch. She has been highly advised against cigarette smoking. I will continue with daily cessation education.
[2016-07-18] MEDS: DESYREL PO SCH (20:51)
[2016-07-19] MEDS: ROCEPHIN 1 GM/NS 50 ML IV SCH (00:01)
[2016-07-19] MEDS: LOVENOX SUBQ SCH (00:59)
[2016-07-19] MEDS: ZITHROMAX 500 MG/NS 250 ML IV SCH ×2 (01:09→01:10)
[2016-07-19] MEDS: DUONEB (A & A) INH SCH ×6 (03:39→23:42)
[2016-07-19 06:49] LABS: MANUAL DIFF NEEDED? NO
[2016-07-19 06:58] LABS: BASO% 0.4 % (0.0-0.8); EOS# 0.16 X1000 (0.0-0.7); HEMATOCRIT 29.3 % (37.0-47.0); HEMOGLOBIN 8.7 g/dL (12.0-16.0); IMM GRAN# 0.02 X1000 (0.0-0.04); IMM GRAN% 0.2 % (0.0-0.5); LYMPH# 1.61 X1000 (1.2-3.4); LYMPH% 20.1 % (20.5-51.1); MCH 24.1 PG (27-31); MCHC 29.7 g/dL (33-37); MCV 81.2 FL (81-99); MONO# 0.72 X1000 (0.11-0.59); NEUT% 68.3 % (42.2-75.2); PLT 582 X1000 (130-400); RBC 3.61 XMIL (4.2-5.4)
[2016-07-19 07:23] LABS: AGAP 11; ALBUMIN 3.3 g/dL (3.5-5.0); ALKALINE PHOSPHATASE 73 U/L (32-104); BUN 10 mg/dL (8-22); CALCIUM 8.6 mg/dL (8.8-10.2); CHLORIDE 103 mmol/L (98-107); COSMO 283; GOT 15 U/L (10-30); GPT 21 U/L (10-36); POTASSIUM 4.1 mmol/L (3.5-5.1); SODIUM 143 mmol/L (136-145); TCO2 29 mmol/L (25-35); TOTAL BILIRUBIN 0.11 mg/dL (0.20-1.00); TOTAL PROTEIN 6.4 g/dL (6.3-8.3)
[2016-07-19] MEDS: TYLENOL PO SCH ×3 (09:00→18:16)
[2016-07-19] MEDS: PREDNISONE PO SCH (09:00)
[2016-07-19] MEDS: FOLIC ACID PO SCH (09:00)
[2016-07-19] MEDS: MOTRIN PO SCH ×3 (09:00→18:16)
[2016-07-19] MEDS: FERROUS SULFATE PO SCH (09:00)
--- NOTE | 2016-07-19 13:33 | PROGRESS NOTE ---
DATE: 07/19/2016 SUBJECTIVE: This patient states that she is feeling better. The cough has been improving but she is still complaining of mild shortness of breath. She denies nausea, vomiting, diarrhea, constipation. She is eating better. Physical therapy is on board. OBJECTIVE: Vital Signs: Temperature 97.9 degrees, pulse 92, respiratory rate 20, blood pressure 108/51, oxygen saturation 95% on nasal cannula. HEENT: Head normocephalic. No trauma. PERRLA. Neck: Supple. No JVD. No masses. Central trachea. Cardiovascular: RRR. No murmurs. Chest: Decreased breath sounds globally. Prolonged expiratory phase. Right upper lung rhonchi. Mild rales at the bases bilaterally. Scattered wheezing. Abdomen: Soft, nontender, nondistended. No hepatosplenomegaly. Extremities: No edema. No clubbing. No cyanosis. Neurological: The patient is alert and oriented x3. No focal neurological deficits. LABORATORY: WBC 8, hemoglobin 8.7, hematocrit 29.3, platelets 582,000. Sodium 143, potassium 4.1, chloride 103, bicarbonate 29, BUN 10, creatinine 0.6, glucose 88, calcium 8.6, albumin 3.3. ASSESSMENT AND PLAN: 1. Right upper lobe pneumonia. Today she is feeling better. The leukocyte count is normal today. When she came in the white blood cells count was 23,000. I will continue with oxygen and also she has been getting oxygen at home. I will continue with the same antibiotics for now and aggressive pulmonary toilet. Probably I will discharge this patient tomorrow. 2. Chronic obstructive pulmonary disease exacerbation. Today she is having scattered wheezing but compared with yesterday she is much better. We will continue with the breathing treatment and oxygen as well and continue with steroids for now. 3. Microcytic anemia. We will continue with ferrous sulfate. 4. Folate deficiency. Continue with folic acid. 5. History of sleep apnea. Continue to monitor. She uses oxygen at home, mostly for sleep and also when she has some physical activity. 6. Tobacco use. This patient is using at this moment nicotine patch. She has been highly advised against cigarette smoking and I will continue with daily cessation education.
[2016-07-19] MEDS: DESYREL PO SCH (21:10)
[2016-07-20] MEDS: ZITHROMAX 500 MG/NS 250 ML IV SCH (00:26)
[2016-07-20] MEDS: LOVENOX SUBQ SCH (00:27)
[2016-07-20] MEDS: ROCEPHIN 1 GM/NS 50 ML IV SCH (01:06)
[2016-07-20] MEDS: DUONEB (A & A) INH SCH ×3 (05:43→11:59)
[2016-07-20 06:39] VITALS: BP 129/81
[2016-07-20 07:05] LABS: MANUAL DIFF NEEDED? NO
[2016-07-20 07:09] LABS: BASO% 0.6 % (0.0-0.8); EOS# 0.18 X1000 (0.0-0.7); EOS% 2.2 % (0.0-10.0); HEMATOCRIT 28.2 % (37.0-47.0); HEMOGLOBIN 8.3 g/dL (12.0-16.0); IMM GRAN# 0.02 X1000 (0.0-0.04); IMM GRAN% 0.2 % (0.0-0.5); LYMPH# 1.93 X1000 (1.2-3.4); LYMPH% 23.3 % (20.5-51.1); MCHC 29.4 g/dL (33-37); MCV 81.5 FL (81-99); MONO% 10.9 % (1.7-9.3); MPV 8.8 FL (7.4-10.4); NEUT% 62.8 % (42.2-75.2); PLT 592 X1000 (130-400); RBC 3.46 XMIL (4.2-5.4)
[2016-07-20 07:36] LABS: AGAP 7; ALBUMIN 3.2 g/dL (3.5-5.0); ALKALINE PHOSPHATASE 65 U/L (32-104); BUN 11 mg/dL (8-22); CALCIUM 8.1 mg/dL (8.8-10.2); CHLORIDE 103 mmol/L (98-107); COSMO 280; GOT 11 U/L (10-30); GPT 18 U/L (10-36); POTASSIUM 4.2 mmol/L (3.5-5.1); SODIUM 141 mmol/L (136-145); TCO2 31 mmol/L (25-35); TOTAL BILIRUBIN < 0.10 mg/dL (0.20-1.00)
[2016-07-20] MEDS: PREDNISONE PO SCH (08:45)
[2016-07-20] MEDS: FOLIC ACID PO SCH (08:45)
[2016-07-20] MEDS: TYLENOL PO SCH ×2 (08:45→12:09)
[2016-07-20] MEDS: MOTRIN PO SCH ×2 (08:45→12:09)
[2016-07-20] MEDS: FERROUS SULFATE PO SCH (08:45)
[2016-07-20] MEDS ORDERED: KEFLEX PO SCH (21:00)
--- NOTE | 2016-07-20 22:44 | DISCHARGE SUMMARY ---
ADMISSION DATE: 07/15/2016 DISCHARGE DATE: 07/20/2016 CONSULTATIONS: None. PERTINENT PROCEDURES: 1. Pulmonary arteriogram showed pulmonary emphysema, dense consolidation in the anterior segment of the right upper lobe consistent with pneumonia and likely much milder pneumonitis of the left lower lobe, biapical scarring with somewhat nodular component to the right apex as well as other nonspecific, noncalcified nodules in the right lung that are subcentimeter in size. Followup is recommended based on Fleischner Society criteria with a repeat CT in 3 months. 2. Nonspecific mediastinal lymphadenopathy probability at least in part reactive, bilateral bronchial mucosal thickening suggestive of bronchitis, no evidence of pulmonary embolism. 3. Repeat chest x-ray on 07/18 showed right upper lobe and possible live in discharge 7. ASSESSMENT AND PLAN: 1. Right upper lobe pneumonia. WBC is normal. Patient to continue on home oxygen as well as p.o. antibiotic with home respiratory treatment. I discussed aggressive pulmonary toilet cough, deep breathe, incentive spirometry at home. 2. Chronic obstructive pulmonary disease, resolved. Microcytic anemia. Continue with ferrous sulfate. 3. Folate deficiency. Continue with folic acid. 4. Sleep apnea history. The patient only uses oxygen at home mostly for sleep and with some physical activity. 5. Tobacco use. The patient has been counseled against tobacco abuse as well as daily cessation education and the means to quit. HOSPITAL COURSE: Briefly, Ms. Ibrahim is a 64-year-old, female who carries a past medical history of COPD, sleep apnea, hyperlipidemia who came to the ED with complaints of a 2 day history of right pleuritic chest pain, a productive cough with greenish sputum. No report of low grade fever, with worsening shortness of breath with orthopnea. Pulmonary arteriogram did show pulmonary emphysema, consolidation in the anterior segment of the right lower lobe consistent with pneumonia and much milder pneumonitis of the left lower lobe, bilateral bronchial mucosal thickening suggesting bronchitis. It did show some nodules that need to be followed up in [address] with [address] of the chest. Patient was started on azithromycin and Rocephin as well as aggressive pulmonary toilet, bronchodilators and O2. Patient was advised against tobacco abuse and abuse with smoking cessation and education to quit. The patient was still having some wheezing. We added on p.o. prednisone. The patient clinically has improved. Her white count has gone from 23 and trending down every day. On the day of her discharge her white count is 8.2. Dr. Hobbs has assessed the patient and feels she is appropriate for discharge home today. DISCHARGE MEDICATIONS: 1. Spiriva 1 puff inhaled RT daily. 2. Atenolol inhaler 2 puffs inhaled q.4 hours p.r.n. 3. Amitriptyline 75 mg p.o. daily. 4. Symbicort 160/4.5 mcg inhaler 1 puff inhaled b.i.d. 5. Daliresp 1 tab inhaled daily. 6. Simvastatin 20 mg p.o. daily. 7. Desyrel 50 mg p.o. at bedtime. 8. Ferrous sulfate 325 mg p.o. daily. 9. Folic acid 1 mg p.o. daily. 10. Levofloxacin 750 mg p.o. daily for 5 days. FOLLOWUP: 1. The patient is being discharged home. 2. She will need to follow up with her primary care physician LESLYE Khan. 3. She will also need to have a repeat chest CT in 3 months in relation to nonspecific, noncalcified nodules in the right upper lung that are a subcentimeter in size. 4. Patient to return to the ED for any worsening of symptoms. DISCHARGE TIME: 30 minutes. Dictated by LESLYE Chris for Shady Pozo MD
[2016-07-21] MEDS ORDERED: LEVAQUIN PO SCH (09:00)
== END 2016-07-20 12:51 | disposition home or self-care (01) | DRG 190 ==
LOC: ED 17:25 → 3N 22:00
PROVIDERS: ATTEND Internal Medicine
DX: J44.0 Chronic obstructive pulmonary disease with (acute) lower respiratory infection (principal); J18.9 Pneumonia, unspecified organism; J44.1 Chronic obstructive pulmonary disease with (acute) exacerbation; F17.210 Nicotine dependence, cigarettes, uncomplicated; D50.9 Iron deficiency anemia, unspecified; R91.8 Other nonspecific abnormal finding of lung field; E53.8 Deficiency of other specified B group vitamins; G47.30 Sleep apnea, unspecified; Z99.81 Dependence on supplemental oxygen; Z71.6 Tobacco abuse counseling; Z80.3 Family history of malignant neoplasm of breast
CPT/HCPCS: 71020; 71275; 80048; 80053; 82550; 82607; 82728; 82746; 83540; 83550; 83605; 83735; 83880; 84484; 85025; 85379; 85610; 85730; 87040; 87070; 87205; 93005; 94640; 94668; 94761; 94799; 96365; 96366; 96375; 96376; J0456; J0696; J1650; J1940; J2270; J2405; J7040; J7512; Q9967